=== PATIENT | female | born 2000 | race Caucasian/White ===

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

== ENCOUNTER 2018-07-30 16:31 | Emergency (ER) | payer OTHER ==
[2018-07-30 16:40] VITALS: BP 116/75; PULSE 107; TEMP 98.2; BMI 21.2
--- NOTE | 2018-07-30 16:44 | PDOC ---
History of Present Illness - General Chief Complaint: Pain Stated Complaint: ABD PAIN Time Seen by Provider: 07/30/18 16:43 - History of Present Illness Initial Comments: 17yo F with PMH of pelvic inflammatory disease (diagnosed and treated one year ago) presenting with left-sided pelvic pain. Patient states this pain feels similar to her PID. The pain started yesterday and is now rated 9/10. She has not taken anything [id number] for it as she does not like to take medicine. No history of abdominal surgeries. Denies vaginal discharge but had some vaginal bleeding a couple days ago. Has had decreased po intake because she feels eating will make her abdomen more full and will make her pain worse. Last bowel movement was three days ago which she believes is because of her lessened po intake, and was a normal formed brown stool without blood. Patient denies history of STIs. No new recent sexual encounters. Last menstrual period was two months ago which is abnormal for her as she usually has regular periods. No urinary symptoms. No history of Denies fevers, chills, chest pain, or shortness of breath. PCP: a doctor in the [place] [employer]: Does not remember the name. Followed with someone last year for PID in the [place]. Past History - Past Medical History Allergies/Adverse Reactions: Allergies Allergy/AdvReac Type Severity Reaction Status Date / Time No Known Allergies Allergy Verified 07/30/18 16:40 Home Medications: Ambulatory Orders NK [No Known Home Medication] 07/30/18 COPD: No Other medical history: PID - Suicide/Smoking/Psychosocial Hx Smoking History: Never smoked Review of Systems - Review of Systems Comments:: Constitutional: no fever, +chills HEENT: no throat pain, no dysphagia Cardiovascular: no chest pain, no palpitations Respiratory: no cough, no shortness of breath Gastrointestinal: +abdominal pain, +vomiting Genitourinary: no dysuria, +vaginal pain Musculoskeletal: no myalgia, no arthralgia Skin: no rash, no itching Neurologic: no headache, no weakness *Physical Exam - Vital Signs Last Vital Signs Temp Pulse Resp BP Pulse Ox 98.2 F 107 H 20 116/75 100 07/30/18 16:37 07/30/18 16:37 07/30/18 16:37 07/30/18 16:37 07/30/18 16:37 - Physical Exam Comments: General: Awake, alert, and fully oriented, in position, writhing Head: No signs of trauma Eyes: EOMI, sclera anicteric ENT: Moist mucus membranes Neck: Normal ROM, supple Lungs: Lungs clear, Normal breath sounds Cardio: Regular rhythm, S1 and S2 present Abdomen: Soft, nontender. No guarding, no rebound, no masses, CVA tenderness on left Extremities: Normal range of motion, Distal pulses present SKIN: Warm, Dry, normal turgor Neurologic: Cranial nerves II through XII grossly intact. Normal speech Pelvic: External genitalia without erythema, exudate or discharge. Vaginal vault is with colon-brown watery discharge. Cervix is of normal color without lesion. The os is closed. There is no bleeding noted. Uterus is noted to be of appropriate size. Cervical motion tenderness is seen. No masses are palpated. The adnexa are with tenderness. ED Treatment Course - LABORATORY CBC & Chemistry Diagram: 07/30/18 17:13 07/30/18 17:13 Medical Decision Making - Medical Decision Making 17yo F with PMH of pelvic inflammatory disease (diagnosed and treated one year ago) presenting with left-sided pelvic pain. DDX including but not limited to PID, UTI, pyelonephritis, TOA, ovarian torsion , ovarian cyst Patient declining pain medication. Upon asking, she states "I know myself. If I feel better, I'm going to leave. I won't stay for the workup" First attempt at pelvic exam unsuccessful. Patient declined exam stating pain upon laying on her behind and asked "can we try again in a few minutes" Second attempt made upon patient request. Please see exam above. 07/30/18 18:29 Patient sent to ultrasound as she says her bladder is full Call from Ultrasound as patient's bladder was not full. Patient brought back to the ED. 1L NS ordered. 07/30/18 18:31 CBC WBC 9.3 K/mm3 (4.0-10.0) 07/30/18 17:13 RBC 4.57 M/mm3 (3.60-5.2) 07/30/18 17:13 Hgb 12.9 GM/dL (10.7-15.3) 07/30/18 17:13 Hct 39.1 % (32.4-45.2) 07/30/18 17:13 MCV 85.6 fl (80-96) 07/30/18 17:13 MCH 28.3 pg (25.7-33.7) 07/30/18 17:13 MCHC 33.1 g/dl (32.0-36.0) 07/30/18 17:13 RDW 13.7 % (11.6-15.6) 07/30/18 17:13 Plt Count 266 K/MM3 (134-434) 07/30/18 17:13 MPV 7.1 fl (7.5-11.1) L 07/30/18 17:13 Absolute Neuts (auto) 5.5 K/mm3 (1.5-8.0) 07/30/18 17:13 Neutrophils % 59.0 % (42.8-82.8) 07/30/18 17:13 Lymphocytes % 29.9 % (8-40) 07/30/18 17:13 Monocytes % 9.9 % (3.8-10.2) 07/30/18 17:13 Eosinophils % 0.7 % (0-4.5) 07/30/18 17:13 Basophils % 0.5 % (0-2.0) 07/30/18 17:13 Nucleated RBC % 0 % (0-0) 07/30/18 17:13 No anemia or leukocytosis CMP Sodium 140 mmol/L (136-145) 07/30/18 17:13 Potassium 3.9 mmol/L (3.5-5.1) 07/30/18 17:13 Chloride 105 mmol/L (98-107) 07/30/18 17:13 Carbon Dioxide 27 mmol/L (21-32) 07/30/18 17:13 Anion Gap 8 MMOL/L (8-16) 07/30/18 17:13 BUN 15 mg/dL (7-18) 07/30/18 17:13 Creatinine 0.7 mg/dL (0.55-1.3) 07/30/18 17:13 Creat Clearance w eGFR 107.80 (>60) 07/30/18 17:13 Random Glucose 81 mg/dL (74-106) 07/30/18 17:13 Calcium 9.3 mg/dL (8.5-10.1) 07/30/18 17:13 Total Bilirubin 0.6 mg/dL (0.2-1) 07/30/18 17:13 AST 12 U/L (15-37) L 07/30/18 17:13 ALT 15 U/L (13-61) 07/30/18 17:13 Alkaline Phosphatase 55 U/L (45-117) 07/30/18 17:13 Total Protein 7.5 g/dl (6.4-8.2) 07/30/18 17:13 Albumin 4.6 g/dl (3.4-5.0) 07/30/18 17:13 Lipase 145 U/L (73-393) 07/30/18 17:13 Electrolytes unremarkable negative UA with 3+ ketones, no signs of infection 07/30/18 18:49 Patient laying on her side in stretcher. Awaiting full bladder for ultrasound 07/30/18 19:33 Patient observed yelling in department "I'm in pain and it takes two hours for my nurse to come to me. I'm leaving. I don't care what you have to say. I'm not going to wait anymore. Take this out of me" (referring to her IV) Patient refused to sign AMA paperwork and left after her IV was removed. 07/30/18 20:51 TVUS: "FINDINGS: The uterus is normal in size and echogenicity. No uterine masses visualized The endometrium is thickened measuring up to 1.4 cm The ovaries are normal in size, both containing small follicles Arterial flow is demonstrated to both ovaries on Doppler evaluation No adnexal masses visualized No free fluid" Antibiotics sent to patient's pharmacy 07/30/18 21:46 *DC/Admit/Observation/Transfer Diagnosis at time of Disposition: Left against medical advice - Discharge Dispostion Disposition: AGAINST MEDICAL ADVICE Condition at time of disposition: Stable - Referrals - Patient Instructions Additional Instructions: You decided to leave AMA. Please return to the ED if you change your mind about receiving care. - Post Discharge Activity
[2018-07-30 17:58] LABS: BASO % 0.5 % (0-2.0); EOS % 0.7 % (0-4.5); HEMATOCRIT 39.1 % (32.4-45.2); HEMOGLOBIN 12.9 GM/dL (10.7-15.3); LYMPH % 29.9 % (8-40); MCH 28.3 pg (25.7-33.7); MCHC 33.1 g/dl (32.0-36.0); MEAN CELL VOLUME 85.6 fl (80-96); MEAN PLT VOLUME 7.1 fl (7.5-11.1); MONO % 9.9 % (3.8-10.2); PLATELET COUNT 266 K/MM3 (134-434); RBC 4.57 M/mm3 (3.60-5.2); RDW 13.7 % (11.6-15.6); WHITE BLOOD COUNT 9.3 K/mm3 (4.0-10.0)
[2018-07-30 18:16] LABS: URINE APPEARANCE CLEAR; URINE BILIRUBIN NEGATIVE (NEGATIVE); URINE COLOR YELLOW; URINE GLUCOSE (UA) NEGATIVE (NEGATIVE); URINE KETONE 3+ (NEGATIVE); URINE LEUK ESTERASE NEGATIVE (NEGATIVE); URINE NITRITE NEGATIVE (NEGATIVE); URINE PROTEIN NEGATIVE (NEGATIVE)
[2018-07-30 18:24] LABS: ALBUMIN 4.6 g/dl (3.4-5.0); ALK PHOS 55 U/L (45-117); ANION GAP 8 MMOL/L (8-16); BILIRUBIN,TOTAL 0.6 mg/dL (0.2-1); BLOOD UREA NITROGEN 15 mg/dL (7-18); CALCIUM 9.3 mg/dL (8.5-10.1); CHLORIDE 105 mmol/L (98-107); CO2 27 mmol/L (21-32); CREATININE 0.7 mg/dL (0.55-1.3); GLUCOSE,RANDOM 81 mg/dL (74-106); LIPASE 145 U/L (73-393); POTASSIUM 3.9 mmol/L (3.5-5.1); SGOT/AST 12 U/L (15-37); SGPT/ALT 15 U/L (13-61); SODIUM 140 mmol/L (136-145); TOT PROT 7.5 g/dl (6.4-8.2)
[2018-07-30] MEDS ORDERED: SODIUM CHLORIDE 1,000 ML IV STA (18:29)
--- NOTE | 2018-07-30 22:55 | PDOC ---
Documentation entered by Giovanni Auguste SCRIBE, acting as scribe for Sada Cooper MD. Sada Cooper MD: This documentation has been prepared by the bakari, Giovanni Auguste SCRIBE, under my direction and personally reviewed by me in its entirety. I confirm that the documentation accurately reflects all work, treatment, procedures, and medical decision making performed by me. Attending Attestation - Resident Resident Name: Karolina Burns - ED Attending Attestation I have performed the following: I have examined & evaluated the patient, The case was reviewed & discussed with the resident, I agree w/resident's findings & plan, Exceptions are as noted - HPI HPI: 07/30/18 17:18 The patient is a 17 year old female with a past medical history of PID here today for evaluation of pelvic pain. The patient reports that her pelvis pain began a few days ago, rates it as a 9/10, is most prominent on the left side, and was worse today which prompted her to come in today. She notes that her current pain is similar to the pain she experienced last year when diagnosed with PID. She reports having no new sexual partners. She also notes associated vaginal bleeding which happened yesterday and 1 episode of non bloody non bilious vomit. Patient reports that eating causes her pain to worsen so she has had decreased PO intake and her last bowel movement was 3 days ago. Patient denies headache, lightheadedness. Denies fever, chills. Denies chest pain, shortness of breath. Denies nausea, diarrhea. Allergies: NKA LMP: 2 months ago - Physicial Exam PE: 07/30/18 18:01 GENERAL: Well developed, well nourished. Awake and alert. HEENT: Normocephalic, atraumatic. PERRLA, EOMI. No conjunctival pallor. Sclera are non- icteric. Moist mucous membranes. Oropharynx is clear. NECK: Supple. Full ROM. No JVD. Carotid pulses 2+ and symmetric, without bruits. No thyromegaly. No lymphadenopathy. CARDIOVASCULAR: Regular rate and rhythm. No murmurs, rubs, or gallops. Distal pulses are 2+ and symmetric. PULMONARY: No evidence of respiratory distress. Lungs clear to auscultation bilaterally. No wheezing, rales or rhonchi. ABDOMINAL: Soft. Non-tender. Non-distended. No rebound or guarding. No organomegaly. Normoactive bowel sounds. PELVIC: exam deferred to Dr. Burns MUSCULOSKELETAL Normal range of motion at all joints. No bony deformities or tenderness. No CVA tenderness. EXTREMITIES: No cyanosis. No clubbing. No edema. No calf tenderness. SKIN: Warm and dry. Normal capillary refill. No rashes. No jaundice. NEUROLOGICAL: Alert, awake, appropriate. Cranial nerves 2-12 intact. No deficits to light touch and temperature in face, upper extremities and lower extremities. No motor deficits in the in face, upper extremities and lower extremities. Normoreflexic in the upper and lower extremities. Normal speech. Toes are down- going bilaterally. Gait is normal without ataxia. PSYCHIATRIC: Cooperative. Good eye contact. Appropriate mood and affect. - Medical Decision Making 07/30/18 20:35 Dr Burns did a pelvic exam and reports left adnexal pain upon palpation pt currently in ultrasound 07/30/18 20:59 pt left AMA without waiting for her ultrasound reading. She refused to sign any paperwork 07/30/18 21:57 Pelvic ultrasound findings. Uterus is normal in size and echogenicity. No uterine masses seen. Endometrium thickened, measuring 1.4 cm Normal ovaries bilaterally Arterial flow was demonstrated in both ovaries. There are no adnexal masses seen. No free fluid
== END 2018-07-30 21:15 | disposition left against medical advice (07) ==
LOC: JER 16:31 → EDBD 16:31 → JER 21:15
PROC: 3E0337Z Introduction of Electrolytic and Water Balance Substance into Peripheral Vein, Percutaneous Approach (ICD-10-PCS; principal; 2018-07-30)
DX: R10.2 Pelvic and perineal pain (principal)
CPT/HCPCS: 36415; 76856-TC; 80053; 81003; 83690; 84703; 85025; 87086; 87491; 87591; 96360; 99285-25; J7030

== ENCOUNTER 2019-03-09 01:26 | Emergency (ER) | payer OTHER ==
[2019-03-09 01:48] VITALS: BMI 21.2
--- NOTE | 2019-03-09 01:49 | PDOC ---
History of Present Illness - General Chief Complaint: Nausea/Vomiting Stated Complaint: VOMITING Time Seen by Provider: 03/09/19 01:48 - History of Present Illness Initial Comments: 03/09/19 01:49 18 yo PMH PID presenting with N/V. Notes that her last menstrual period was January 06 and believes that she is likely , but has not checked. Reports that her nausea began 4 days ago, states that she has vomited 30 times in that time frame. Further reports that she has a lot of milky white vaginal discharge. Endorses suprapubic abdominal pain. States that this would be an unplanned . Specifically denies CP, SOB, dysuria, hematuria, BARR, constipation/diarrhea, fevers/chills. Past History - Past Medical History Allergies/Adverse Reactions: Allergies Allergy/AdvReac Type Severity Reaction Status Date / Time No Known Allergies Allergy Verified 03/09/19 01:38 Home Medications: Ambulatory Orders Doxylamine Succinate/Vit B6 [Doxylamine-Pyridoxine 10-10 mg] 1 each PO TID PRN # 40 tablet. 03/09/19 Pnv No.95/Ferrous Fum/Folic AC [ Vitamin Tablet] 1 each PO DAILY #60 tablet 03/09/19 COPD: No - Reproductive History (#): 2 Para: 0 Cervical CA: No Dysfunctional Uterine Bleeding: No Ectopic : No Endometrial CA: No Polycystic Ovaries: No Therapeutic (s) & number: Yes (2) Tubal Ligation: No - Psycho Social/Smoking Cessation Hx Smoking History: Never smoked Have you smoked in the past 12 months: No Information on smoking cessation initiated: No Hx Alcohol Use: No Drug/Substance Use Hx: No Review of Systems - Review of Systems Comments:: 03/09/19 01:52 GENERAL/CONSTITUTIONAL: No fever or chills. No weakness. HEAD, EYES, EARS, NOSE AND THROAT: No change in vision. No ear pain or discharge. No sore throat. CARDIOVASCULAR: No chest pain or shortness of breath. RESPIRATORY: No cough, wheezing, or hemoptysis. GASTROINTESTINAL: Nausea with vomiting. No diarrhea or constipation. GENITOURINARY: No dysuria, frequency, or change in urination. Milky white discharge. MUSCULOSKELETAL: No joint or muscle swelling or pain. No neck or back pain. SKIN: No rash NEUROLOGIC: No headache, vertigo, loss of consciousness, or change in strength/ sensation. ENDOCRINE: No increased thirst. No abnormal weight change. HEMATOLOGIC/LYMPHATIC: No anemia, easy bleeding, or history of blood clots. ALLERGIC/IMMUNOLOGIC: No hives or skin allergy *Physical Exam - Vital Signs Last Vital Signs Temp Pulse Resp BP Pulse Ox 98.3 F 81 20 114/75 98 03/09/19 01:36 03/09/19 01:36 03/09/19 01:36 03/09/19 01:36 03/09/19 01:36 - Physical Exam 03/09/19 01:52 Gen: well-developed, well-nourished, NAD Neuro: AAOX4, CN II-XII intact, FTN intact, EOMI, PERRLA, 5/5 strength, SILT HEENT: atraumatic, normocephalic, dry mucous membranes Neck: trachea midline, supple CV: regular rate, regular rhythm, no murmurs, rubs, or gallops Pulm: CTA b/l, no wheezing Abd: soft, non-distended, suprapubic tenderness : milky white discharge in the vault, os closed, no CMT or adnexal tenderness. MSK: full ROM, intact pulses Extr: no edema, no deformities Skin: warm, dry ED Treatment Course - LABORATORY CBC & Chemistry Diagram: 03/09/19 02:33 03/09/19 02:33 Medical Decision Making - Medical Decision Making 03/09/19 03:02 Concern for vs UTI. - CBC, CMP - u preg - quant HCG - T+S Patient extremely tearful, repeatedly asks us to come back in a couple of minutes after each step. 03/09/19 03:10 U is positive. Patient has been [facility] to [facility]. vitamins sent to pharmacy. Patient willing to stay until morning for TVUS. Will also send doxylamine 10mg and pyridoxine 10mg to her pharmacy for nausea. 2 doses at night, 1 in the morning, 1 at afternoon. 03/09/19 04:30 beta-hCG 8977. 03/09/19 07:[address] Gaspar. Discharge - Discharge Information Problems reviewed: Yes Clinical Impression/Diagnosis: - Additional Discharge Information Prescriptions: Doxylamine Succinate/Vit B6 [Doxylamine-Pyridoxine 10-10 mg] 1 each PO TID PRN # [address] GILLIS Reason: Nausea Pnv No.95/Ferrous Fum/Folic AC [ Vitamin Tablet] 1 each PO DAILY #60 tablet - Follow up/Referral - Patient Discharge Instructions - Post Discharge Activity
--- NOTE | 2019-03-09 02:08 | PDOC ---
Attending Attestation - Resident Resident Name: Dusty Linton - ED Attending Attestation I have performed the following: I have examined & evaluated the patient, The case was reviewed & discussed with the resident, I agree w/resident's findings & plan, Exceptions are as noted - HPI HPI: 03/09/19 06:33 See resident HPI - Physicial Exam PE: 03/09/19 06:33 Agree with exam as documented by resident - Medical Decision Making 03/09/19 06:33 CC of n/v in context of missed menstrual periods f/u labs, ua Symptomatic tx +preg f/u tvus If normal IUP, dc with joint runner f/u, care Rx for vitamins and components of diclegis sent to pharmacy of choice
[2019-03-09] MEDS ORDERED: METOCLOPRAMIDE HCL INJECTION 10 MG/2 ML VIAL IVPUSH ONE (02:09)
[2019-03-09] MEDS ORDERED: SODIUM CHLORIDE 1,000 ML IV STA (02:09)
[2019-03-09] MEDS ORDERED: METOCLOPRAMIDE HCL INJECTION 10 MG/2 ML VIAL ONE (02:25)
[2019-03-09 02:35] LABS: EPI CELLS 7.3 /HPF (0-5/HPF); HYALINE CASTS 10 /lpf (0-8); PH,URINE 5.5 (5.0-8.0); URINE APPEARANCE CLOUDY; URINE BACTERIA 82.2 /hpf (NEGATIVE); URINE BILIRUBIN NEGATIVE (NEGATIVE); URINE COLOR YELLOW; URINE GLUCOSE (UA) NEGATIVE (NEGATIVE); URINE KETONE 3+ (NEGATIVE); URINE LEUK ESTERASE NEGATIVE (NEGATIVE); URINE NITRITE NEGATIVE (NEGATIVE); URINE PROTEIN 1+ (NEGATIVE); URINE RBC 4 /hpf (0-4); URINE WBC 3 /hpf (0-5)
[2019-03-09 02:49] LABS: HEMATOCRIT 40.7 % (32.4-45.2); HEMOGLOBIN 13.1 GM/dL (10.7-15.3); MCH 27.4 pg (25.7-33.7); MCHC 32.1 g/dl (32.0-36.0); MEAN CELL VOLUME 85.2 fl (80-96); MEAN PLT VOLUME 7.4 fl (7.5-11.1); PLATELET COUNT 307 K/MM3 (134-434); RBC 4.78 M/mm3 (3.60-5.2); RDW 12.9 % (11.6-15.6); WHITE BLOOD COUNT 12.2 K/mm3 (4.0-10.0)
[2019-03-09 03:10] LABS: ALBUMIN 4.2 g/dl (3.4-5.0); BILIRUBIN,TOTAL 0.4 mg/dL (0.2-1); BLOOD UREA NITROGEN 8.8 mg/dL (7-18); CALCIUM 9.4 mg/dL (8.5-10.1); CREATININE 0.6 mg/dL (0.55-1.3); POTASSIUM 3.8 mmol/L (3.5-5.1); TOT PROT 7.2 g/dl (6.4-8.2)
[2019-03-09] MEDS ORDERED: ACETAMINOPHEN 1000 MG/100 ML VIAL (NON FORMULARY) IVPB ONE (03:12)
[2019-03-09] MEDS ORDERED: ACETAMINOPHEN INJECTION 100 ML IVPB ONE (03:16)
--- NOTE | 2019-03-09 10:07 | PDOC ---
*Physical Exam - Vital Signs Last Vital Signs Temp Pulse Resp BP Pulse Ox 97.4 F L 83 18 113/72 97 03/09/19 07:26 03/09/19 07:26 03/09/19 07:26 03/09/19 07:26 03/09/19 07:40 ED Treatment Course - LABORATORY CBC & Chemistry Diagram: 03/09/19 02:33 03/09/19 02:33 - ADDITIONAL ORDERS Additional order review: Laboratory Results 03/09/19 03/09/19 03/09/19 02:33 02:33 02:33 Sodium 138 Potassium 3.8 Chloride 106 Carbon Dioxide 22 Anion Gap 10 BUN 8.8 Creatinine 0.6 Est GFR (CKD-EPI)AfAm 152.08 Est GFR (CKD-EPI)NonAf 131.21 Random Glucose 91 Calcium 9.4 Total Bilirubin 0.4 AST 11 L ALT 17 Alkaline Phosphatase 59 Total Protein 7.2 Albumin 4.2 Beta HCG, Quant 8977.0 Urine Color Urine Appearance Urine pH Ur Specific [place] Urine Protein Urine Glucose (UA) Urine Ketones Urine Blood Urine Nitrite Urine Bilirubin Urine Urobilinogen Ur Leukocyte Esterase Urine WBC (Auto) Urine RBC (Auto) Urine Casts (Auto) U Epithel Cells (Auto) Urine Bacteria (Auto) Urine HCG, Qual Blood Type O POSITIVE Antibody Screen Negative 03/09/19 03/09/19 02:20 02:20 Sodium Potassium Chloride Carbon Dioxide Anion Gap BUN Creatinine Est GFR (CKD-EPI)AfAm Est GFR (CKD-EPI)NonAf Random Glucose Calcium Total Bilirubin AST ALT Alkaline Phosphatase Total Protein Albumin Beta HCG, Quant Urine Color Yellow Urine Appearance Cloudy Urine pH 5.5 Ur Specific [place] 1.024 Urine Protein 1+ H Urine Glucose (UA) Negative Urine Ketones 3+ H Urine Blood Negative Urine Nitrite Negative Urine Bilirubin Negative Urine Urobilinogen 1.0 Ur Leukocyte Esterase Negative Urine WBC (Auto) 3 Urine RBC (Auto) 4 Urine Casts (Auto) 10 U Epithel Cells (Auto) 7.3 Urine Bacteria (Auto) 82.2 Urine HCG, Qual Positive Blood Type Antibody Screen 03/09/19 02:33 RBC 4.78 MCV 85.2 MCHC 32.1 RDW 12.9 MPV 7.4 L - Medications Given in the ED: ED Medications Discontinued Medications Generic Name Dose Route Start Last Admin Trade Name Freq PRN Reason Stop Dose Admin Acetaminophen 1,000 mg 03/09/19 03:12 03/09/19 03:22 Ofirmev Injection - IVPB 03/09/19 03:13 1,000 mg ONCE ONE Administration Sodium Chloride 1,000 mls @ 1,000 mls/hr 03/09/19 02:09 03/09/19 02:40 Normal Saline - IV 03/09/19 03:08 1,000 mls/hr ASDIR STA Administration Metoclopramide HCl 10 mg 03/09/19 02:09 03/09/19 02:40 Reglan Injection - IVPUSH 03/09/19 02:10 10 mg ONCE ONE Administration Medical Decision Making - Medical Decision Making 03/09/19 10:05 Pt sent to u/s this morning, shows IUP of 5 weeks 3d gestational age. Pt does not currently have an OBGYN, will refer pt to Dr. Garcia for follow up in 2 days. Discharge - Discharge Information Problems reviewed: Yes Clinical Impression/Diagnosis: Qualifiers: Weeks of gestation: less than 8 weeks Qualified Code(s): Z3A.01 - Less than 8 weeks gestation of Condition: Good Disposition: HOME - Admission No - Additional Discharge Information Prescriptions: Doxylamine Succinate/Vit B6 [Doxylamine-Pyridoxine 10-10 mg] 1 each PO TID PRN # [address] GILLIS Reason: Nausea Pnv No.95/Ferrous Fum/Folic AC [ Vitamin Tablet] 1 each PO DAILY #60 tablet - Follow up/Referral Referrals: Staci Garcia MD [Staff Physician] - 2 Days - Patient Discharge Instructions Patient Printed Discharge Instructions: DI for -- Discomforts and Remedies Additional Instructions: You were in the hospital because you were having nausea and vomiting. While here we did blood work and an ultrasound which revealed that you were . We are referring you to an OB-[facility] Dr. Garcia, for follow up OB care. Please make an appointment within the next 2 days. If you experience worsening nausea, vomiting abdominal pain or vaginal bleeding please return to the emergency department immediately. - Post Discharge Activity
[2019-03-09 10:53] VITALS: BP 140/65; PULSE 98; TEMP 98
== END 2019-03-09 10:45 | disposition home or self-care (01) ==
LOC: JER 01:26
PROC: 3E033NZ Introduction of Analgesics, Hypnotics, Sedatives into Peripheral Vein, Percutaneous Approach (ICD-10-PCS; principal; 2019-03-09)
PROC: 3E033GC Introduction of Other Therapeutic Substance into Peripheral Vein, Percutaneous Approach (ICD-10-PCS; 2019-03-09)
DX: O26.891 Other specified pregnancy related conditions, first trimester (principal)
CPT/HCPCS: 36415; 76817-TC; 80053; 81003; 84702; 84703; 85027; 86850; 86900; 86901; 87086; 87491; 87591; 96374; 96375; 99284-25; J0131; J7030

== ENCOUNTER 2024-07-15 09:21 | Emergency (ER) | payer OTHER ==
[2024-07-15 09:43] VITALS: BP 108/69; PULSE 89; RESP 18; TEMP 98.5; BMI 28.3
== END 2024-07-15 10:11 | disposition home or self-care (01) ==
LOC: JERFT 09:21
DX: S69.91XA Unspecified injury of right wrist, hand and finger(s), initial encounter (principal); R20.2 Paresthesia of skin; W23.2XXA Caught, crushed, jammed or pinched between a moving and stationary object, initial encounter
CPT/HCPCS: 73140-TC-RT-FY; 99283-25